=== PATIENT | male | born 1960 | race Caucasian/White ===

== ENCOUNTER 2021-04-27 13:08 | Outpatient (CLI) | payer OTHER, SELFPAY ==
--- NOTE | ~2021-04-27 | US_ITS ---
EXAMINATION: US paracentesis abd w/image DATE: 04/27/2021 14:59 INDICATION: Ascites. TECHNIQUE: The procedure and its risks, benefits, and alternatives were discussed with the patient. P otential risks discussed included bleeding and infection. The skin was prepped and draped in sterile fashion. 1% lidocaine was used for local anesthesia. Under ultrasound guidance, a 5 Fr catheter with trochar was advanced into the ascites in the right lower quadrant. Fluid was aspirated. The catheter was removed, and a dressing was applied. There were no immediate complications. FINDINGS: Ultrasound images demonstrate ascites and the catheter within the fluid. IMPRESSION: 1. Successful ultrasound-guided paracentesis yielding 2550 mL of clear, yellow fluid. Reviewed, dictated and finalized at location A. ETY SAW OPERATOR
== END 2021-04-27 13:09 | disposition home or self-care (01) ==
LOC: ANHIMG 13:16
PROVIDERS: Visit Provider Internal Medicine Pulmonary Disease
DX: K72.90 Hepatic failure, unspecified without coma (principal); K74.60 Unspecified cirrhosis of liver
CPT/HCPCS: 49083

== ENCOUNTER 2021-05-13 09:41 | Outpatient (CLI) | payer OTHER, SELFPAY ==
--- NOTE | ~2021-05-13 | US_ITS ---
EXAMINATION: US paracentesis abd w/image EXAM DATE: 05/13/2021 12:42 INDICATION: Cirrhosis. Ascites. TECHNIQUE: The procedure and its risks and benefits were discussed with the patient. Alternatives als o discussed. Potential risks discussed included bleeding and infection. The skin was prepped and drap ed in sterile fashion. A total of 4 mL of 1% lidocaine was used for local anesthesia. Under ultrasoun d guidance, a 5 Fr catheter with trochar was advanced into the ascites in the left lower quadrant. Fl uid was aspirated into vacuum bottles. A total of 1.6 L straw colored fluid was taken in total. The catheter was removed, and a dressing was applied. There were no immediate complications. FINDINGS: Ultrasound images demonstrate ascites. IMPRESSION: Paracentesis, yielding 1.6 L fluid. Reviewed, dictated and finalized at location A. EL SOLUTION ARCHITECT
[2021-05-13 11:29] LABS: Immature Platelet Fraction Pct 6.4 % (0.9-11.2); Mean Platelet Volume 10.7 fl (7.4-10.4); Platelet Count Result 39 k/mm3 (150-375)
[2021-05-13 11:38] LABS: INR 1.5; Prothrombin Time 18.2 Seconds (11.1-14.7)
== END 2021-05-13 09:42 | disposition home or self-care (01) ==
LOC: ANHIMG 09:47
PROVIDERS: Radiology Diagnostic Radiology; Visit Provider Internal Medicine Adolescent Medicine
DX: K74.60 Unspecified cirrhosis of liver (principal)
CPT/HCPCS: 36415; 49083; 85049; 85055; 85610